=== PATIENT | female | born 1995 | race American Indian/Alaskan Native ===

== ENCOUNTER 2020-10-02 13:33 | Emergency (ER) | payer SELFPAY ==
[2020-10-02 13:56] VITALS: BP 116/56
--- NOTE | 2020-10-02 14:21 | Emergency Department Report ---
Chief Complaint: Urogenital-Female Stated Complaint: VAGINAL IRRITATION - HPI History of Present Illness: 25-year-old -Mexican female presents to the emergency room stating she has some vaginal irritation and discharge with an odor. Patient denies any abdominal pain no nausea no vomiting no diarrhea no constipation no fever no chills. She reports that her vaginal discharge has an odor. She reports that her sexual partner states that he has a urinary tract infection. - Exam Vital Signs: Vital Signs 10/02/20 13:54 Temperature 98.5 F Pulse Rate 79 Respiratory 16 Rate Blood Pressure 116/56 O2 Sat by Pulse 98 Oximetry Physical Exam: Alert and oriented x3 no acute distress nontoxic in appearance Nonlabored breathing Full range of motion of all extremities Ambulatory without difficulties. MSE screening note: Focused history and physical exam performed. Due to findings the following was ordered: 25-year-old -Mexican female presents to the emergency room stating she has some vaginal irritation and discharge with an odor. Patient denies any abdominal pain no nausea no vomiting no diarrhea no constipation no fever no chills. She reports that her vaginal discharge has an odor. She reports that her sexual partner states that he has a urinary tract infection. Referral to health department in urgent care or her primary care provider. ED Disposition for MSE Disposition: Z- MED SCREENING EXAM-LEFT Is pt being admited?: No Does the pt Need Aspirin: No Condition: Stable
== END 2020-10-02 15:00 | disposition left against medical advice (07) ==
LOC: ED 13:33
DX: N89.8 Other specified noninflammatory disorders of vagina (principal); Z53.21 Procedure and treatment not carried out due to patient leaving prior to being seen by health care provider

== ENCOUNTER 2020-10-03 06:44 | Emergency (ER) | payer MEDICAID ==
[2020-10-03 07:48] VITALS: BP 118/83
--- NOTE | 2020-10-03 08:56 | Emergency Department Report ---
ED Abdominal Pain HPI - General Chief Complaint: Urogenital-Female Stated Complaint: ABDOMINAL PAIN,BACK PAIN,VAGINAL IRRITATION Time Seen by Provider: 10/03/20 08:30 Source: patient Mode of arrival: Ambulatory Limitations: No Limitations - History of Present Illness Initial Comments: This is a pleasant 25-year-old female presents emergency department with a chief complaint of vaginal discharge, pelvic and back pain. Patient reports her partner was recently treated for urinary tract infection. She reports he had symptoms of a STD with penile discharge. She states she is starting to notice that the discharge has an odor and is becoming thicker. She denies any associated fevers, chills, night sweats, headache, dizziness, blurry vision, nausea, vomiting, diarrhea, chest pain, shortness of breath or any other associated symptoms. - Related Data Previous Rx's Medication Instructions Recorded Last Taken Type metroNIDAZOLE [Flagyl TAB] 500 mg PO Q8HR #21 tablet 10/03/20 Unknown Rx Allergies Allergy/AdvReac Type Severity Reaction Status Date / Time No Known Allergies Allergy Unverified 10/02/20 13:55 ED Review of Systems ROS: Stated complaint: ABDOMINAL PAIN,BACK PAIN,VAGINAL IRRITATION Other details as noted in HPI Comment: All other systems reviewed and negative Constitutional: denies: chills, fever Eyes: denies: eye pain, eye discharge, vision change ENT: denies: ear pain, throat pain Respiratory: denies: cough, shortness of breath, wheezing Cardiovascular: denies: chest pain, palpitations Endocrine: no symptoms reported Gastrointestinal: as per HPI, abdominal pain. denies: nausea, diarrhea Genitourinary: as per HPI, discharge. denies: urgency, dysuria Musculoskeletal: as per HPI, back pain. denies: joint swelling, arthralgia Skin: denies: rash, lesions Neurological: denies: headache, weakness, paresthesias Psychiatric: denies: anxiety, depression Hematological/Lymphatic: denies: easy bleeding, easy bruising ED Past Medical Hx - Past Medical History Previous Medical History?: No - Surgical History Past Surgical History?: No - Social History Smoking Status: Never Smoker - Medications Home Medications: Home Medications Medication Instructions Recorded Confirmed Last Taken Type metroNIDAZOLE [Flagyl TAB] 500 mg PO Q8HR #21 tablet 10/03/20 Unknown Rx ED Physical Exam - General Limitations: No Limitations General appearance: alert, in no apparent distress - Head Head exam: Present: atraumatic, normocephalic - Eye Eye exam: Present: normal appearance, PERRL, EOMI Pupils: Present: normal accommodation - ENT ENT exam: Present: normal exam, normal orophraynx, mucous membranes moist - Neck Neck exam: Present: normal inspection, full ROM. Absent: tenderness, meningismus - Respiratory Respiratory exam: Present: normal lung sounds bilaterally. Absent: respiratory distress, wheezes, rales, rhonchi, stridor - Cardiovascular Cardiovascular Exam: Present: regular rate, normal rhythm, normal heart sounds. Absent: systolic murmur, diastolic murmur, rubs, gallop - GI/Abdominal GI/Abdominal exam: Present: soft, tenderness (Mild suprapubic tenderness palpation, no rebound or guarding), normal bowel sounds. Absent: distended, guarding, rebound, rigid - External exam: Present: normal external exam. Absent: erythema, swelling, lesions Speculum exam: Present: vaginal discharge (Copious white thick discharge with a malodorous odor). Absent: foreign body Bi-manual exam: Present: normal bi-manual exam, other (Exam chaperoned by RAUL Meyer). Absent: cervical motion tendernes - Extremities Exam Extremities exam: Present: normal inspection, full ROM, normal capillary refill. Absent: tenderness, calf tenderness - Back Exam Back exam: Present: normal inspection, full ROM. Absent: tenderness, CVA tenderness (R), CVA tenderness (L), muscle spasm - Neurological Exam Neurological exam: Present: alert, oriented X3, normal gait - Psychiatric Psychiatric exam: Present: normal affect, normal mood - Skin Skin exam: Present: warm, dry, intact, normal color. Absent: rash ED Course Vital Signs 10/03/20 10/03/20 10/03/20 07:42 07:48 09:52 Temperature 98.3 F Pulse Rate 67 Respiratory 16 18 Rate Blood Pressure 118/83 O2 Sat by Pulse 98 98 Oximetry ED Medical Decision Making - Lab Data Lab Results 10/03/20 10/03/20 Range/Units 08:56 Unknown Urine Color Yellow (Yellow) Urine Turbidity Slightly-cloudy (Clear) Urine pH 5.0 (5.0-7.0) Ur Specific [place] 1.020 (1.003-1.030) Urine Protein <15 mg/dl (Negative) mg/dL Urine Glucose (UA) Neg (Negative) mg/dL Urine Ketones Neg (Negative) mg/dL Urine Blood Neg (Negative) Urine Nitrite Neg (Negative) Urine Bilirubin Neg (Negative) Urine Urobilinogen < 2.0 (<2.0) mg/dL Ur Leukocyte Esterase Sm (Negative) Urine WBC (Auto) 2.0 (0.0-6.0) /HPF Urine RBC (Auto) 2.0 (0.0-6.0) /HPF U Epithel Cells (Auto) 14.0 H (0-13.0) /HPF Urine Bacteria (Auto) 1+ (Negative) /HPF Urine Mucus 3+ /HPF Urine HCG, Qual Negative (Negative) - Medical Decision Making The patient's pelvic exam showed a copious discharge. Trichomonas was negative on the wet prep. She had increased clue cells consistent with bacterial vagin osis. She reports that her partner had penile discharge which I suspect is likely the source of her symptoms as well. She was covered for gonorrhea chlamydia with Rocephin 250 IM and azithromycin 1 g p.o. in the emergency department educated her that her partner need to be treated prior to engaging in sexual intercourse as well as she need to follow-up with the health department or with her [employer] IN[employer]CTOR for any other further STD testing. She understood that the only STD that she was checked for today was trichomonas but she was treated for gonorrhea chlamydia. I will treat her for bacterial vaginosis with metronidazole 500 3 times daily x1 week. She had no cervical motion tenderness, no adnexal tenderness or fullness making PID or TOA unlikely. She verbalized understanding of these instructions and all of her questions were answered. - Differential Diagnosis STD, bacterial vaginosis, trichomonas Critical care attestation.: If time is entered above; I have spent that time in minutes in the direct care of this critically ill patient, excluding procedure time. ED Disposition Clinical Impression: Bacterial vaginosis, Exposure to STD Disposition: DC-01 TO HOME OR SELFCARE Is pt being admited?: No Condition: Stable Instructions: Bacterial Vaginosis (ED), Bacterial Vaginosis, [id number] Prescriptions: metroNIDAZOLE [Flagyl TAB] 500 mg PO Q8HR #21 tablet Forms: STI Treatment and Prevention Time of Disposition: 11:26
[2020-10-03 09:18] LABS: Bacteria,Urine 1+ /HPF (Negative); Bilirubin,Urine NEG (Negative); Blood,Urine NEG (Negative); Color,Urine Yellow (Yellow); Mucus,Urine 3+ /HPF; Protein,Urine <15 mg/dL mg/dL (Negative); Urobilinogen,Urine < 2.0 mg/dL (<2.0)
[2020-10-03 09:27] LABS: HCG Qualitative,Urine Negative (Negative)
[2020-10-03] MEDS ORDERED: LIDOCAINE-MPF (1%) 10 MG/1 ML VIAL 5 ML INFILTRATI ONE (09:51)
[2020-10-03] MEDS ORDERED: AZITHROMYCIN 250 MG TAB PO ONE (09:51)
[2020-10-03] MEDS ORDERED: ONDANSETRON 4 MG ODT TAB ONE (11:24)
[2020-10-03] MEDS ORDERED: ONDANSETRON 4 MG ODT TAB PO ONE (17:36)
== END 2020-10-03 11:43 | disposition home or self-care (01) ==
LOC: ED 06:44
DX: N76.0 Acute vaginitis (principal); B96.89 Other specified bacterial agents as the cause of diseases classified elsewhere; Z20.2 Contact with and (suspected) exposure to infections with a predominantly sexual mode of transmission
CPT/HCPCS: 81001; 81025; 87210; 96372; 99284; J0696; Q0162

== ENCOUNTER 2020-11-24 14:58 | Emergency (ER) | payer MEDICAID ==
[2020-11-24 15:10] VITALS: BP 119/78
[2020-11-24 16:09] LABS: Bilirubin,Urine NEG (Negative); Blood,Urine NEG (Negative); Color,Urine Yellow (Yellow); Mucus,Urine FEW /HPF; Protein,Urine <15 mg/dL mg/dL (Negative)
[2020-11-24 16:15] LABS: HCG Qualitative,Urine Negative (Negative)
[2020-11-24] MEDS ORDERED: LIDOCAINE-MPF (1%) 10 MG/1 ML VIAL 5 ML INFILTRATI ONE (16:16)
--- NOTE | 2020-11-24 16:16 | Emergency Department Report ---
ED Female HPI - General Chief complaint: Vaginal Bleeding Stated complaint: VAGINAL BLEEDING; BURNING Time Seen by Provider: 11/24/20 15:13 Source: patient Mode of arrival: Ambulatory Limitations: No Limitations - History of Present Illness Initial comments: Patient is a 25-year-old female presents emergency room complaints of dysuria that began 4 days ago. She states that she notices hematuria and has a small amount of spotting with wiping but otherwise denies any vaginal bleeding. She states that she also has yellow vaginal discharge. She states that she was recently sexually active without protection. She denies any abdominal pain, pelvic pain, significant back pain, nausea, vomiting, diarrhea, fever. No past medical history. No allergies medications. She states her last menstrual cycle was 11/12/2020. She states that she has IUD. she states she has an appointment with her PCP in 2 weeks. - Related Data Previous Rx's Medication Instructions Recorded Last Taken Type metroNIDAZOLE [Flagyl TAB] 500 mg PO Q8HR #21 tablet 10/03/20 Unknown Rx Doxycycline Hyclate [Doxycycline 100 mg PO BID 7 Days #14 tab 11/24/20 Unknown Rx Hyclate TAB] metroNIDAZOLE [Flagyl] 500 mg PO BID 7 Days #14 tab 11/24/20 Unknown Rx Allergies Allergy/AdvReac Type Severity Reaction Status Date / Time No Known Allergies Allergy Verified 11/24/20 15:08 ED Review of Systems ROS: Stated complaint: VAGINAL BLEEDING; BURNING Other details as noted in HPI Comment: All other systems reviewed and negative ED Past Medical Hx - Past Medical History Previous Medical History?: No - Surgical History Past Surgical History?: No - Social History Smoking Status: Never Smoker - Medications Home Medications: Home Medications Medication Instructions Recorded Confirmed Last Taken Type metroNIDAZOLE [Flagyl TAB] 500 mg PO Q8HR #21 tablet 10/03/20 Unknown Rx Doxycycline Hyclate [Doxycycline 100 mg PO BID 7 Days #14 tab 11/24/20 Unknown Rx Hyclate TAB] metroNIDAZOLE [Flagyl] 500 mg PO BID 7 Days #14 tab 11/24/20 Unknown Rx ED Physical Exam - General Limitations: No Limitations General appearance: alert, in no apparent distress - Head Head exam: Present: atraumatic, normocephalic - Eye Eye exam: Present: normal appearance - ENT ENT exam: Present: mucous membranes moist - Respiratory Respiratory exam: Present: normal lung sounds bilaterally. Absent: respiratory distress, wheezes, rales, rhonchi, stridor, chest wall tenderness, accessory muscle use, decreased breath sounds, prolonged expiratory - Cardiovascular Cardiovascular Exam: Present: regular rate, normal rhythm, normal heart sounds. Absent: systolic murmur, diastolic murmur, rubs, gallop - GI/Abdominal GI/Abdominal exam: Present: soft, normal bowel sounds. Absent: distended, tenderness, guarding, rebound, rigid - External exam: Present: other (pt deferred) - Back Exam Back exam: Absent: CVA tenderness (R), CVA tenderness (L) - Neurological Exam Neurological exam: Present: alert, oriented X3 - Psychiatric Psychiatric exam: Present: normal affect, normal mood - Skin Skin exam: Present: warm, dry, intact ED Course Vital Signs 11/24/20 15:09 Temperature 97.4 F L Pulse Rate 73 Respiratory 18 Rate Blood Pressure 119/78 O2 Sat by Pulse 99 Oximetry ED Medical Decision Making - Medical Decision Making Patient is a 25-year-old female presents emergency room complaints of dysuria that began 4 days ago. She states that she notices hematuria and has a small amount of spotting with wiping but otherwise denies any vaginal bleeding. She states that she also has yellow vaginal discharge. She states that she was recently sexually active without protection. She denies any abdominal pain, pelvic pain, significant back pain, nausea, vomiting, diarrhea, fever. No past medical history. No allergies medications. She states her last menstrual cycle was 11/12/2020. She states that she has IUD. she states she has an appointment with her PCP in 2 weeks. vitals are normal. on exam: No abdominal tenderness or CVA tenderness on exam. UA is normal. Urine is negative. Patient has been sexually active without protection and is now complaining of dysuria and vaginal discharge, symptoms could likely be related to STD. She has no pelvic pain or back pain or fever or vomiting to suggest PID. Patient given 500 mg ceftriaxone while in the emergency department. Patient given prescription for doxycycline and Flagyl. Advised patient Please take medication as prescribed. Increase your water intake. eat yogurt and take probiotics to avoid yeast infection. Please follow-up with your primary care doctor and [facility]. Please follow-up with a clinic or the health department for a full STD panel. Have any partner tested and treated as well. Avoid sexual intercourse for 10 days. Return to emergency room for any new or worsening symptoms. Critical care attestation.: If time is entered above; I have spent that time in minutes in the direct care of this critically ill patient, excluding procedure time. ED Disposition Clinical Impression: Dysuria, Concern about STD in female without diagnosis, Vaginal spotting Disposition: TO HOME OR SELFCARE Is pt being admited?: No Does the pt Need Aspirin: No Condition: Stable Instructions: Dysuria Additional Instructions: Please take medication as prescribed. Increase your water intake. eat yogurt and take probiotics to avoid yeast infection. Please follow-up with your primary care doctor and [facility] [employer] DES[employer] [facility]ER. Please follow-up with a clinic or the health department for a full STD panel. Have any partner tested and treated as well. Avoid sexual intercourse for 10 days. Return to emergency room for any new or worsening symptoms. Prescriptions: Doxycycline Hyclate [Doxycycline Hyclate TAB] 100 mg PO BID 7 Days #14 tab metroNIDAZOLE [Flagyl] 500 mg PO BID 7 Days #14 tab Referrals: PRIMARY CARE [Primary Care Provider] - 2-3 Days [facility] [Outside] - 2-3 Days [facility] [Provider Group] - 2-3 Days Time of Disposition: 16:18 Print Language: SERBIAN
== END 2020-11-24 16:44 | disposition home or self-care (01) ==
LOC: ED 14:58
DX: R30.0 Dysuria (principal); N93.9 Abnormal uterine and vaginal bleeding, unspecified; Z20.2 Contact with and (suspected) exposure to infections with a predominantly sexual mode of transmission; Z79.899 Other long term (current) drug therapy
CPT/HCPCS: 81001; 81025; 96372; 99283; J0696

== ENCOUNTER 2021-04-17 22:06 | Emergency (ER) | payer MEDICAID | END 2021-04-18 00:01 | disposition left against medical advice (07) | LOC: ED 22:06 | DX: R53.83 Other fatigue (principal); Z53.21 Procedure and treatment not carried out due to patient leaving prior to being seen by health care provider ==

== ENCOUNTER 2021-05-09 16:05 | Emergency (ER) | payer MEDICAID | END 2021-05-09 18:00 | disposition left against medical advice (07) | LOC: ED 16:05 | DX: R10.9 Unspecified abdominal pain (principal); Z53.21 Procedure and treatment not carried out due to patient leaving prior to being seen by health care provider ==